=== PATIENT | male | born 1965 | race Caucasian/White ===

== ENCOUNTER 2020-09-19 15:10 | Outpatient (REF) | payer MEDICARE, OTHER, SELFPAY ==
--- NOTE | ~2020-09-19 | XR_ITS ---
EXAMINATION: XR CHEST CLINICAL INFORMATION: Cough. Evaluate for pneumonia. COMPARISON: None TECHNIQUE: 2 views of the chest were obtained. FINDINGS: Hypoinflation of the lungs. Minimal probable atelectasis adjacent to the right hilum. No large, confluent airspace consolidation. No pleural effusion or pneumothorax. Unremarkable cardiomediastinal silhouette. XR/XR chest 2V IMPRESSION: Hypoinflation of the lungs with probable minimal right perihilar atelectasis.
== END 2020-09-19 15:11 | disposition home or self-care (01) ==
LOC: HO.XRAY 15:10
PROVIDERS: PCP Internal Medicine; Visit Provider Internal Medicine
DX: R05 Cough (principal)
CPT/HCPCS: 71046

== ENCOUNTER 2020-09-19 15:48 | Outpatient (REF) | payer MEDICARE, OTHER, SELFPAY ==
[2020-09-19 16:06] LABS: COVID-19 Test Negative (Negative)
== END 2020-09-19 15:49 | disposition home or self-care (01) ==
LOC: HO.LAB 15:48
PROVIDERS: PCP Internal Medicine; Visit Provider Internal Medicine
DX: Z20.822 Contact with and (suspected) exposure to COVID-19 (principal)
CPT/HCPCS: 36415; 71046; 87635; C9803

== ENCOUNTER 2021-10-05 10:20 | Outpatient (REF) | payer MEDICARE, OTHER, SELFPAY ==
--- NOTE | ~2021-10-05 | XR_ITS ---
EXAMINATION: XR LUMBOSACRAL SPINE CLINICAL INFORMATION: Paresthesias left thigh COMPARISON: None TECHNIQUE: Three views of the lumbosacral spine. FINDINGS: There may be a transitional vertebral body segment or 6 lumbar-type vertebral bodies. Bone alignment is normal. No fracture or dislocation is seen. There is degenerative disc disease of the lower thoracic spine. Disc spaces are otherwise normal. There is lower lumbar spine facet arthritis. XR/XR lumbar spine 2-3V IMPRESSION: Mild degenerative changes.
== END 2021-10-05 10:21 | disposition home or self-care (01) ==
LOC: HO.XRAY 10:20
PROVIDERS: PCP Internal Medicine; Visit Provider Internal Medicine
DX: R20.2 Paresthesia of skin (principal)
CPT/HCPCS: 72100

== ENCOUNTER 2025-02-23 15:57 | Outpatient (REF) | payer MEDICARE, OTHER, SELFPAY ==
--- OUTSIDE RECORDS SUMMARY | 2025-02-23 14:45 | XMS_ITS | Encounter Summary ---
Author Organization [employer] Address [address] [place] [address] Care Team Providers Care Director Of Clinical Trials Name Role Phone Unavailable Primary Care Provider Unavailabl e Encounter Details Date Type Department Care Team (Late st Contact Info) Description 02/23/2025 2:45 PM EDT Office Visit [facility] [address] [place], [place] [phone] Sharita Watson FNP [address] [place], [place] [phone] Well adult exam (Primary Dx) Social History Tobacco Use Types Packs/Day Years Used Date Smoking Tobacco: Former Cigarettes Passive Smoke Exposure: Past Smokeless Tobacco: Former Tobacco Cessation:Counseling Given: Not Answered Depression Answer Date Recorded Patient Health Questionnaire-9 Score 4 02/23/2025 Patient Health Questionnaire-9 Score 4 02/23/2025 Last PHQ-9: Questionnaire Data Not on file 0 02/23/2025 Housing Stability Answer Date Recorded What is your housing situation today? I have vicki gonzalez 02/23/[address] you li ve. Do you have problems with any of the following? None of the above 02/23/2025 Food Insecurity Answer Date Recorded Within the past 12 months, y ou worried that your food would run out before you got money to buy more: Sometimes True 2024 Within the past 12 months,th e food you bought just didn't last and you didn't have enough money to get more: Sometimes True 02/23/2025 Transportation Answer Date Recorded In the past 12 months, has l ack of transportation kept you from medical appts, meetings, work or from getting things needed for daily living? No 02/23/2025 Utilities Answer Date Recorded In the past 12 months, has t he electric, gas, oil or water company threatened to shut off services in your home? No 02/23/2025 Depression Answer Date Recorded Patient Health Questionnaire-2 Score 3 02/23/2025 Internet Access Answer Date Recorded Internet Access Q1 Yes 02/23/2025 Internet Access Q2 Not on file 02/23/2025 Sex and Gender Information Value Date Recorded Sex Assigned at Male 01/26/2025 10:54 AM EDT Legal Sex Male 5:37 PM EDT Gender Identity Male 02/22/2025 10:35 AM EDT Sexual Orientation Straight 02/22/2025 10 :35 AM EDT documented as of this encounter Last Filed Vital Signs Vital Sign Reading Time Taken Comments Blood Pressure 136/84 02/23/2025 3:52 PM EDT Pulse 66 02/23/2025 2:32 PM EDT Temperature 36.9 C (98.4 F) 02/23/2025 2:32 PM EDT Respiratory Rate 20 02/23/2025 2:32 PM EDT Oxygen Saturation 98% 02/23/2025 2:32 PM EDT Inhaled Oxygen Concentration - - Weight 122 kg (270 lb) 02/23/2025 2:32 PM EDT Height 170.4 cm (5' 7.08 ) 02/23/2025 2:32 PM ED T Body Mass Index 42.19 02/23/2025 2:32 PM EDT documented in this encounter Functional Status * Over the past 2 weeks, how often have you been bothered by any of the following problems? Question Answer Date of Assessment Author Patient Health Questionnaire -2 Score 3 02/23/2025 3:18 PM EDT Joanna Haley MA * Little interest or pleasure in doing things Answer Date of Assessment Author Nearly every day 02/23/2025 3:18 PM EDT Joanna Gagnon Ma, [place] * Feeling down, depressed, or hopeless Answer Date of Assessment Author Not at all 02/23/2025 3:18 PM EDT Joanna Lassiter MA * Trouble falling or staying asleep, or sleeping too much Answer Date of Assessment Author Not at all 02/23/2025 3:18 PM EDT Joanna Lassiter MA * Feeling tired or having little energy Answer Date of Assessment Author Several days 02/23/2025 3:18 PM EDT Joanna Lassiter MA * Poor appetite or overeating Answer Date of Assessment Author Not at all 02/23/2025 3:18 PM EDT Joanna Lassiter MA * Feeling bad about yourself - or that you are a failure or have let yourself or your family down Answer Date of Assessment Author Not at all 02/23/2025 3:18 PM EDT Joanna Lassiter MA * Trouble concentrating on things, such as reading the newspaper or watching television Answer Date of Assessment Author Not at all 02/23/2025 3:18 PM EDT Joanna Lassiter MA * Moving or speaking so slowly that other people could have noticed? Or the opposite - being so fidgety or restless that you have been moving around a lot more than usual. Answer Date of Assessment Author Not at all 02/23/2025 3:18 PM EDT Joanna Lassiter MA * Thoughts that you would be better off or hurting yourself in some way Answer Date of Assessment Author Not at all 02/23/2025 3:18 PM EDT Joanna Lassiter MA * Patient Health Questionnaire-9 Score Answer Date of Assessment Author 4 02/23/2025 3:18 PM EDT Joanna Lassiter MA * How difficult have these problems made it for you to do your work, take care of things at home, or get along with other people? Answer Date of Assessment Author Not difficult at all 02/23/2025 3:18 PM EDT Joanna Morataya MA * Over the last 2 weeks, how often have you been bothered by any of the following problems? Question Answer Date of Assessment Author Feeling nervous, anxious, or on edge 0 02/23/2025 3:18 PM EDT Joanna Haley MA Not being able to stop or control worrying 0 02/23/2025 3:18 PM ERICT Joanna Haley MA Worrying too much about different things 1 02/23/2025 3:18 PM EDT Joanna Haley MA Trouble relaxing 0 02/23/2025 3:18 PM EDT R eyes Joanna Woodall MA Being so restless that it is hard to sit still 1 02/23/2025 3:18 PM EDT Joanna Haley MA Becoming easily annoyed or irritable 0 02/23/2025 3:18 PM EDT Joanna Haley MA Feeling afraid as if somethi ng awful might happen 0 02/23/2025 3:18 PM EDT Joanna Haley MA SORAYA-7 Total Score 2 02/23/2025 3:18 PM EDT Joanna Haley MA documented as of this encounter Plan of Treatment Scheduled Orders Name Type Priority Associated Diagnoses Orde r Schedule Comprehensive Metabolic Panel Lab Routine Well adult exam Expected: 02/23/2025 (Approximate), Expires: 02/22/2026 TSH Lab Routine Well adult exam Expected: 02/23/2025 (Approximate), Expires: 02/22/2026 Hepatitis C Antibody with Reflex to HCV, RNA, Quantitative, Real-Time PCR Lab Routine Well adult exam Expected: 02/23/2025, Expires: 02/22/2026 CBC auto differential Lab Routine Well adult exam Expected: 02/23/2025 (Approximate), Expires: 02/22/2026 Lipid Panel, Standard Lab Routine Well adult exam Expected: 02/23/2025 (Approximate), Expires: 02/22/2026 Hemoglobin A1c Lab Routine Well adult exam Expected: 02/23/2025 (Approximate), Expires: 02/22/2026 documented as of this encounter Visit Diagnoses Diagnosis Well adult exam- Primary Routine general medical examination at a health care facility documented in this encounter Additional Health Concerns Assessment Noted Time PHQ-9 Depression Total Score: 4 02/24/20 25 3:18 PM EDT documented as of this encounter
--- OUTSIDE RECORDS SUMMARY | 2025-02-23 18:00 | XMS_ITS | Clinical Summary ---
Author Organization [employer] Address [address] [facility] [address] [place] [address] Care Team Providers Care Coil Connector Name Role Phone Unavailable Primary Care Provider Unavailabl e Allergies No known active allergies Medications losartan (Cozaar) 100 MG tablet Take 1 tablet by mouth Once per day. 5 Active atorvastatin (Lipitor) 20 MG tablet Take 20 mg by mouth Once per day. as directed 5 Active amLODIPine (Norvasc) 10 MG tablet Take 1 tablet by mouth Once per day. 5 Active dilTIAZem (Cardizem) 60 MG immediate release tablet Take 60 mg by mouth Once per day. Active carbamide peroxide (Debrox) 6.5 % otic solution Administer 5-10 drops into affected ear(s) 2 times daily for 4 days. 30 mL 5 02/28/20 25 Active Active Problems Problem Noted Date Diagnosed Date Colon cancer screening 02/22/2025 Encounters Date Type Department Care Team Description 02/23/2025 2:45 PM EDT Office Visit [facility] [address] [place], [place] [phone] Sharita Watson FNP Well adult exam (Primary Dx) 02/23/2025 Travel 02/22/2025 Telephone [facility] [address] [place] [address] Sharita Watson FNP Chart Prep 02/16/2025 Patient Outreach [facility] [address] [place], [place] [phone] Sharita Watson FNP Pre-visit Planning (SDOH unable to reach LVM ) from Last 3 Months Social History Tobacco Use Types Packs/Day Years [...] Orientation Straight 02/22/2025 10 :35 AM EDT Last Filed Vital Signs Vital Sign Reading [...] Mass Index 42.19 02/23/2025 2:32 PM EDT Plan of Treatment Health Maintenance Due Date Last Done Comments CT Colonography 1965 Colonoscopy 1965 Colorectal Cancer Screening 1965 FIT DNA/Cologuard 1965 FIT 1965 FOBT 1965 HIV Screening 1965 Lipid Panel 1965 Sigmoidoscopy 1965 Hepatitis C Screening 1983 DTaP/Tdap/Td Vaccines (1 - Tdap) 1984 Hepatitis B Vaccines (1 of 3 - 19+ 3-dose series) 1984 Pneumococcal Vaccine: 50+ Years (1 of 1 - PCV) 2015 Zoster Vaccines (1 of 2) 2015 COVID-19 Vaccine (1 - 2023-2 5 season) 2025 Influenza Vaccine (#1) 2025 Alcohol/Substance Use Screening 02/23/2026 02/23/2025 Depression Screening 02/23/2026 02/23/2025, 02/23/2025 Disability Screening 02/23/2026 02/23/2025 SDOH Screening 02/23/2026 02/23/2025 Tobacco Screening 02/23/2026 02/23/2025 RSV Patients and Patients Aged 60 years or older (1 - 1-dose 75+ series) 2040 HIB Vaccines Aged Out No longer eligi ble based on patient's age to complete this topic HPV Vaccines Aged Out No longer eligi ble based on patient's age to complete this topic Hepatitis A Vaccines Aged Out No long er eligible based on patient's age to complete this topic IPV Vaccines Aged Out No longer eligi ble based on patient's age to complete this topic Meningococcal B Vaccine Aged Out No l onger eligible based on patient's age to complete this topic Meningococcal Vaccine Aged Out No kellie demetrio eligible based on patient's age to complete this topic RSV under 20 months Aged Out No longe r eligible based on patient's age to complete this topic Rotavirus Vaccines Aged Out No longer eligible based on patient's age to complete this topic Insurance [facility] MEDICARE
--- OUTSIDE RECORDS SUMMARY | 2025-02-23 18:00 | XMS_ITS | Patient Health Record ---
Author Organization [facility] Address [address] [place] [address] Care Team Providers Care Sales Officer Name Role Phone Consuelo (RETIRED) Khris AGUDELO Primary Care Provider Unavailable Nomi Reid Jr Unavailable Reason For Referral No Information Medications Medication SIG (Take, Route, Frequency, Duration) Notes Start Date End Date Status Colyte with Flavor Packs 240 GM As directed Orally Over the specified time. for 1 day(s) 09/16/2018 Active Levothyroxine Sodium 112 MCG 1 tablet on an empty stomach in the morning Orally Once a day Active Simvastatin 40 MG 1 tablet in the even ing Orally Once a day Active Immunizations Vaccine Route Administration Date Status Comme nts Influenza Unknown 09/16/2018 Refused Social History Tobacco Use: Social History Observation Description Date Details (start date - stop date) Former Smoker NA - NA Tobacco Use/Smoking Question Answer Notes Patient is a former smoker How long has it been since you last smoked? > 10 years Alcohol Screen Question Answer Notes Did you have a drink contain ing alcohol in the past year? Yes How often did you have a dri nk containing alcohol in the past year? Monthly or less (1 point) How many drinks did you have on a typical day when you were drinking in the past year? 1 or 2 drinks (0 point) How often did you have 6 or more drinks on one occasion in the past year? Never (0 point) Points 1 Interpretation Negative Problems Problem Type SNOMED Code ICD Code Onset Dates Problem Status W/U Status Risk Notes Problem [id number] Colon cancer screening (Z12.11) Active confirmed Plan Of Treatment Future Test Test Name Order Date COLONOSCOPY 09/16/2018 Insurance Providers Payer Name Payer Address Payer Phone Subscriber Number Group Number Insured Name Patient Relationship to Insured Coverage Start Date Coverage End Date MEDICARE OF [employer] [address] [place] [address] [id number] [employer] Self - patient is the insured Medical (General) History Medical History History ICD Code hypercholesterolemia thyroid Surgical History Surgery Date(Month/Year) carpal tunnel release bilateral
--- OUTSIDE RECORDS SUMMARY | 2025-02-23 18:00 | XMS_ITS | Encounter Summary ---
Author Organization [employer] Address [address] [place] [address] Care Team Providers Care Manager Storage Name Role Phone Unavailable Primary Care Provider Unavailabl e Reason for Visit * Reason Onset Date Comments Chart Prep 02/22/2025 Encounter Details Date Type Department Care Team (Late st Contact Info) Description 02/22/2025 Telephone [facility] [address] [place] [address] Sharita Watson FNP [address] [place] [address] Chart Prep Social History Tobacco Use Types Packs/Day Years Used Date Smoking Tobacco: Never Assessed Depression Answer Date Recorded Patient Health Questionnaire-9 [...] AM EDT documented as of this encounter Miscellaneous Notes * Telephone Encounter - Anastacio [place] MA - 02/22/2025 9:29 AM EDT Chart Prep Labs: not applicable Images: not applicable Referrals: not applicable Vaccines due: Covid, Flu, Hep B, HPV, and DTAP Screenings: colonoscopyAlcohol/Substance Use Screening ( Overdue care gaps: SBIRT, SDOH, PHQ-9, SORAYA-7, Oral health screening, Disability screen, and Tobacco documented in this encounter Plan of Treatment Not on file documented as of this encounter Visit Diagnoses Not on filedocumented in this encounter
--- OUTSIDE RECORDS SUMMARY | 2025-02-23 18:00 | XMS_ITS | Encounter Summary ---
Author Organization [employer] Address [address] [place] [address] Care Team Providers Care Hand Developer Name Role Phone Unavailable Primary Care Provider Unavailabl e Encounter Details Date Type Department Care Team (Latest Contact Info) Description 02/23/2025 Travel Social History Tobacco Use Types Packs/Day Years Used Date Smoking Tobacco: Former Cigarettes Passive Smoke Exposure: Past Smokeless Tobacco: Former Depression Answer Date Recorded Patient Health Questionnaire-9 [...] AM EDT documented as of this encounter Functional Status * Over the [...] or control worrying 0 02/23/2025 3:18 PM EDT Joanna aHley MA Worrying too much about different things 1 02/23/2025 3:18 PM EDT Joanna Haley MA Trouble relaxing 0 02/23/2025 3:18 PM EDT Joanna Hughes MA Being so restless that it is [...] as of this encounter Plan of Treatment Not on file documented as of this encounter Visit Diagnoses Not on filedocumented in this encounter Additional Health Concerns Assessment Noted Time PHQ-9 Depression Total Score: 4 02/24/20 3:18 PM EDT documented as of this encounter
[2025-02-23 18:26] LABS: Hematocrit 45.3 % (42.0-52.0); Hemoglobin 15.2 g/dl (14.0-18.0); Imm Gran Abs Auto 0.01 X10*3/uL (0.00-0.03); Imm Gran Pct Auto 0.1 % (0.0-0.4); Lymphocytes Absolute Auto 2.1 X10*3/uL (1.2-4.9); MANUAL DIFF FLAG NO; Mean Corpuscular HGB Conc 33.6 g/dl (31.0-36.0); Mean Corpuscular Hemoglobin 30.1 pg (27.0-33.0); Mean Corpuscular Volume 89.7 fL (80.0-98.0); NRBC Abs Auto 0.000 X10*3/uL (0.0-0.012); NRBC Pct Auto 0.0 /100WBC (0.0-0.2); Platelet Count 294 X10*3/uL (160-400); Red Blood Count 5.05 X10*6/uL (4.60-5.80); White Blood Count 9.2 X10*3/uL (4.8-10.8)
[2025-02-23 19:10] LABS: Alanine Aminotransferase 13 U/L (0-40); Albumin Level 4.4 g/dL (3.5-5.0); Alkaline Phosphatase 86 U/L (39-117); Anion Gap 12 (12-20); Aspartate Amino Transferase 23 U/L (5-37); Blood Urea Nitrogen 20 mg/dL (9-16); Calcium 9.5 mg/dL (8.4-10.2); Carbon Dioxide 28 mmol/L (22-29); Chloride 105 mmol/L (96-108); Cholesterol 155 mg/dL (<200); Estimated Glomerular Filt Rate > 60; HDL Cholesterol 41 mg/dL (>40); Potassium 4.7 mmol/L (3.3-5.1); Sodium 140 mmol/L (135-145); Total Protein 7.4 g/dL (6.5-8.0); Triglycerides 76 mg/dL (<150)
[2025-02-23 19:15] LABS: Thyroid Stimulating Hormone 6.07 uIU/mL (0.32-4.0)
[2025-02-24 04:21] LABS: ~HepC Num1 0.10 S/CO (0.00-0.79); ~Hepatitis C Antibody Nonreactive (Nonreactive)
[2025-02-24 05:24] LABS: Hemoglobin A1C 141.5404 umol/L; Total Hemoglobin (HGBA1C) 3838.8320 umol/L
== END 2025-02-23 15:58 | disposition home or self-care (01) ==
LOC: HO.HHCL 15:57
PROVIDERS: PCP Nurse Practitioner Family; Visit Provider Nurse Practitioner Family
DX: Z00.00 Encounter for general adult medical examination without abnormal findings (principal); Z13.1 Encounter for screening for diabetes mellitus; Z13.6 Encounter for screening for cardiovascular disorders; Z13.29 Encounter for screening for other suspected endocrine disorder
CPT/HCPCS: 36415; 80053; 80061; 83036; 84443; 85025; 86803

== ENCOUNTER 2025-04-20 11:18 | Outpatient (REF) | payer MEDICARE, OTHER, SELFPAY ==
--- OUTSIDE RECORDS SUMMARY | 2025-04-20 10:30 | XMS_ITS | Encounter Summary ---
Author Organization [employer] Address [address] [place] [address] Care Team Providers Care Shiatsu Therapist Name Role Phone Sharita Watson MACHINE PECAN PICKER Primary Care Provider [phone] Reason for Visit * Reason Comments Blood Pressure Check Cerumen Impaction Encounter Details Date Type Department Care Team (Latest Contact Info) Description 04/20/2025 10:30 AM EST Clinical Support [facility] [address] [place] [address] Kelly Tamez RN Hypertension, unspecified type; Bilateral impacted cerumen Social History Tobacco Use Types Packs/Day Years Used Date Smoking Tobacco: Former Cigarettes Passive Smoke Exposure: Past Smokeless Tobacco: Former Alcohol Answer Date Recorded How often do you have a drink containing alcohol ? 0 04/14/2025 Average Number of Drinks Not on file 025 Frequency of Binge Drinking Not on file 04/02 Depression Answer Date Recorded Patient Health Questionnaire-9 Score 4 02/23/2025 Patient Health Questionnaire-9 Score 4 02/23/2025 Last PHQ-9: Questionnaire Data Not on file 0 02/23/2025 Housing Stability Answer Date Recorded What is your housing situation today? I have vicki lisa 02/23/[address] you li [...] Sign Reading Time Taken Comments Blood Pressure 124/80 04/20/2025 10:38 AM EST Pulse 57 04/20/2025 10:37 AM EST Temperature 37.3 C (99.1 F) 04/20/2025 10:37 AM EST Respiratory Rate 18 04/20/2025 10:37 AM EST Oxygen Saturation 98% 04/20/2025 10:37 AM EST Inhaled Oxygen Concentration - - Weight 123 kg (272 lb) 04/20/2025 10:37 AM EST Height 170.2 cm (5' 7 ) 04/20/2025 10:37 AM EST Body Mass Index 42.6 04/20/2025 10:37 AM EST documented in this encounter Progress Notes * Kelly Tamez RN - 04/20/2025 10:30 AM ESTAssociated Order(s): Ear Cerumen Removal Post-Procedure Diagnose(s): Bilateral impacted cerumen SUBJECTIVE: Nash Krause is a 59 y.o. year old male who presents for Blood Pressure Check and Cerumen Impaction. Art last OV recomendtaions made on that day per PCP were Continue with losartan 100 mg daily and diltiazem 60 mg daily. Instructed to take medications at same period daily. Provided blood pressure cuff for home monitoring. Advised to record blood pressure readings one to two hours after morning dose and between 5:00 and 6:00 PM in the evening. Scheduled nurse follow-up on April 20, 2025, to review blood pressure readings and assess medication efficacy. And Bilateral cerumen impaction confirmed. Prescribed ear drops (5-10 drops in each ear, twice daily for 4 days starting April 16, 2025). Scheduled nurse visit for ear lavage on April 20, 2025, at 10:30 AM with nurse Liudmila. Advised to use Q-tip only to clean material that comes out of ear canal, not to insert into ear. . Today pt denies any blurred vision, shortness of breath, chest pain, dizziness, or headaches. Pt denies smoking and states they drink alcohol occasionally. Pt states their diet consist of oatmeal, toast, chicken, pork chops, rice and vegetables. Pt denies eating anything salty in the last 24 hours. Pt report they do not exercise. . Pt reports they take their medication at night but has been taking it everyday as prescribed and checking their BP daily. Pt denies using the drops but still would like to proceed with ear lovage. Current Medications[1] Patient Active Problem List Diagnosis Date Noted Toothache 04/16/2025 Bilateral impacted cerumen 04/16/2025 Hyperlipidemia 04/16/2025 Periodontal disease 04/14/2025 Dental abscess 04/14/2025 Hypertension 02/25/2025 Morbid obesity (CMS/HCC) (HCC) 02/25/2025 Hypothyroidism 02/25/2025 Colon cancer screening 02/22/2025 Patient has no known allergies. BP Readings from Last 4 Encounters: 04/20/25 124/80 04/13/25 120/78 02/23/25 136/84 Pulse Readings from Last 4 Encounters: 04/20/25 57 04/13/25 66 02/23/25 66 OBJECTIVE: BP log scanned under media. Vitals: 04/20/25 1037 04/20/25 1038 BP: 122/80 124/80 BP Location: Left arm Right arm Patient Position: Sitting Sitting BP Cuff Size: Adult Adult Pulse: 57 Resp: 18 Temp: 99.1 ??F (37.3 ??C) TempSrc: Oral SpO2: 98% Weight: 272 lb (123 kg) Height: 5' 7 (1.702 m) ASSESSMENT: Ear irrigation completed and pt tolerated well. Pt advised to continue with the use of debrox dropsat home and to come back in 4 days for nurse visit to attempt another removal in left ear. Pt declined at this time and states they will monitor at home and call us back if they change their mind. Achieve goal blood pressure of <140/90 or <130/80 PLAN: Pt advised to continue taking medications as directed and reinforcement of lifestyle modifications including low sodium diet and exercise were reviewed. Pt advised to continue to check their BP dailyand a message will be sent to their provider for review. Pt verbalized understanding and is agreeable to plan discussed at today's visit. Patient ID: Nash Krause is a 59 y.o. male. Ear Cerumen Removal Date/Time: 04/20/2025 10:39 AM Performed by: Kelly Tamez RN Authorized by: LOUIE Kang Consent: Consent obtained: Verbal Consent given by: Parent and patient Risks, benefits, and alternatives were discussed: yes Risks discussed: Incomplete removal Alternatives discussed: Alternative treatment Procedure details: Location: L ear and R ear Procedure type: irrigation Procedure outcomes: cerumen removed Post-procedure details: Inspection: Some cerumen remaining Hearing quality: Improved Procedure completion: Tolerated Future Appointments Date Time Provider Department Center 07/21/2025 2:00 PM Allyson Hopper OD [facility] Kelly Tamez RN [1] Current Outpatient Medications Medication Sig Dispense Refill acetaminophen (Tylenol) 500 MG tablet Take 1 tablet (500 mg) by mouth every 6 (six) hours if neededfor mild pain. 30 tablet 0 amoxicillin (Amoxil) 500 MG capsule Take 1 capsule (500 mg) by mouth every 8 (eight) hours for 7 days. 21 capsule 0 atorvastatin (Lipitor) 20 MG tablet Take 1 tablet (20 mg) by mouth Once per day. as directed 90 tablet 1 Blood Pressure kit 1 Units 2 times daily. 1 kit 0 dilTIAZem (Cardizem) 60 MG immediate release tablet Take 60 mg by mouth Once per day. ibuprofen 400 MG tablet Take 1 tablet (400 mg) by mouth 3 times daily. 15 tablet 0 levothyroxine (Synthroid) 112 MCG tablet Take 1 tablet (112 mcg) by mouth before breakfast. 30 tablet 11 losartan (Cozaar) 100 MG tablet Take 1 tablet (100 mg) by mouth Once per day. 30 tablet 3 No current facility-administered medications for this visit. documented in this encounter Plan of Treatment Upcoming Encounters Date Type Department Care Team (Late st Contact Info) Description 07/21/2025 2:00 PM EST Office Visit [facility] [address] [place] [address] TarAllyson bai, OD [address] [place] [address] documented as of this encounter Procedures Procedure Name Priority Date/Time Associated Diagnosis Comments ME REMOVAL IMPACTED CERUMEN IRRIGATION/LVG UNILAT Routine 04/20/2025 10:39 AM EST Bilateral impacted cerumen documented in this encounter Results * ME REMOVAL IMPACTED CERUMEN IRRIGATION/LVG UNILAT (04/20/2025 10:39 AM EST) Narrative Kelly Tamez RN - 04/20/2025 10:39 AM EST Kelly Tamez RN 04/20/2025 2:50 PM Ear Cerumen Removal Date/Time: 04/20/2025 10:39 AM Performed by: Kelly Tamez RN Authorized by: LOUIE Kagn Consent: Consent obtained: Verbal Consent given by: Parent and patient Risks, benefits, and alternatives were discussed: yes Risks discussed: Incomplete removal Alternatives discussed: Alternative treatment Procedure details: Location: L ear and R ear Procedure type: irrigation Procedure outcomes: cerumen removed Post-procedure details: Inspection: Some cerumen remaining Hearing quality: Improved Procedure completion: Tolerated Sharita PALMA IN CLINIC/BEDSIDE ORDERABLES F inal Result documented in this encounter Visit Diagnoses Diagnosis Hypertension, unspecified type Bilateral impacted cerumen Impacted cerumen documented in this encounter Additional Health Concerns Assessment Noted Time PHQ-9 Depression Total Score: 4 02/24/20 3:18 PM EDT documented as of this encounter Care Teams Shiatsu Therapist Relationship Specialty Start Date End Date Sharita Watson FNP [address] [place] [address] PCP - General Family Medicine 03/31/25 documented as of this encounter
[2025-04-20 15:17] LABS: Free T4 (Free Thyroxine) 1.26 ng/dL (0.71-1.85); Thyroid Stimulating Hormone 0.88 uIU/mL (0.32-4.0)
--- OUTSIDE RECORDS SUMMARY | 2025-04-20 22:17 | XMS_ITS | Patient Health Record ---
Author Organization [facility] Address [address] [place] [address] Care Team Providers Care Correctional Supervisor Lieutenant Name Role Phone Consuelo (RETIRED) Khris AGUDELO Primary Care Provider Unavailable Nomi Reid Jr Unavailable Reason For Referral No Information Medications Medication SIG (Take, Route, Frequency, Duration) Notes Start Date End Date Status Colyte with Flavor Packs 240 GM Solution Reconstituted As directed Orally Over the specified time.; Duration: 1 day(s) 09/16/2018 Active Levothyroxine Sodium 112 MCG Tablet 1 tablet on an empty stomach in the morning Orally Once a day Active Simvastatin 40 MG Tablet 1 tablet in the evening Orally Once a day Active Immunizations Vaccine Route Administration Date Status Comme nts Influenza Unknown 09/16/2018 Refused Social History Tobacco Use: Social History Observation Description Date Details (start date - stop date) Former Smoker NA - NA Social History Drugs/Alcohol: Social Info Question Answer Notes Alcohol Screen Did you have a drink containing alcohol in the past year? Yes How often did you have a drink containing alcohol in the past year? Monthly or less (1 point) How many drinks did you have on a typical day when you were drinking in the past year? 1 or 2 drinks (0 point) How often did you have 6 or more drinks on one occasion in the past year? Never (0 point) Points 1 Interpretation Negative Tobacco Use: Social Info Question Answer Notes Tobacco Use/Smoking Patient is a former smoker How long has it been since you last smoked? > 10 years Additional Details Category Social Info Options Details Miscellaneous: Marital status: Occupation: unemployed Problems Problem Type SNOMED Code ICD Code Onset Dates Problem Status W/U Status Risk Notes Problem Colon cancer screening (260772772) Colon cancer screening (Z12.11) Active confirmed Plan Of Treatment Future Test Test Name Order Date COLONOSCOPY 09/16/2018 Insurance Providers Payer Name Payer Address Payer Phone Subscriber Number Group Number Insured Name Patient Relationship to Insured Coverage Start Date Coverage End Date MEDICARE OF [employer] [address] [place] [address] [id number] [place] Self - patient is the insured Medical (General) History Medical History History ICD Code hypercholesterolemia thyroid Surgical History Surgery Date(Month/Year) carpal tunnel release bilateral
--- OUTSIDE RECORDS SUMMARY | 2025-04-20 22:18 | XMS_ITS | Clinical Summary ---
Author Organization [employer] Address [address] [place] [address] Care Team Providers Care Clerical Associate Name Role Phone Sharita Watson [employer] [employer]ER Primary Care Provider [phone] Allergies No known active allergies Medications dilTIAZem (Cardizem) 60 MG immediate release tablet Take 60 mg by mouth Once per day. Active Blood Pressure kitIndications :Hypertension, unspecified type 1 Units 2 times daily. 1 kit 02/26/20 25 Active levothyroxine (Synthroid) 112 MCG tablet Take 1 tablet (112 mcg) by mouth before breakfast. 30 tablet 11 03/30/20 25 026 Active atorvastatin (Lipitor) 20 MG tablet Take 1 tablet (20 mg) by mouth Once per day. as directed 90 tablet 1 04/13/20 25 Active losartan (Cozaar) 100 MG tablet Take 1 tablet (100 mg) by mouth Once per day. 30 tablet 3 04/13/20 25 Active acetaminophen (Tylenol) 500 MG tablet Take 1 tablet (500 mg) by mouth every 6 (six) hours if needed for mild pain. 30 tablet 04/14/20 25 Active ibuprofen 400 MG tablet Take 1 tablet (400 mg) by mouth 3 times daily. 15 tablet 04/14/20 25 Active amoxicillin (Amoxil) 500 MG capsule Take 1 capsule (500 mg) by mouth every 8 (eight) hours for 7 days. 21 capsule 04/14/20 25 025 Active atorvastatin (Lipitor) 20 MG tablet Take 20 mg by mouth Once per day. as directed 12/21/19 25 025 Discontinued(Re order (will not trigger notification to Pharmacy)) amLODIPine (Norvasc) 10 MG tablet Take 1 tablet by mouth Once per day. 12/21/19 025 Discontinued(Th erapy completed) levothyroxine (Synthroid) 100 MCG tablet Take 1 tablet (100 mcg) by mouth before breakfast. 30 tablet 1 02/25/20 25 025 Discontinued losartan (Cozaar) 100 MG tablet Take 100 mg by mouth Once per day. 025 Discontinued(Re order (will not trigger notification to Pharmacy)) carbamide peroxide (Debrox) 6.5 % otic solutionIndica tions:Bilatera l impacted cerumen Administer 5-10 drops into affected ear(s) 2 times daily for 4 days. 30 mL 04/13/20 025 Active Problems Problem Noted Date Diagnosed Date Toothache 04/16/2025 Bilateral impacted cerumen 04/16/2025 Hyperlipidemia 04/16/2025 Periodontal disease 04/14/2025 Dental abscess 04/14/2025 Hypertension 02/25/2025 Morbid obesity (CMS/HCC) 02/25/2025 Hypothyroidism 02/25/2025 Colon cancer screening 02/22/2025 Encounters Date Type Department Care Team Description 04/20/2025 10:30 AM EST Clinical Support [address] [phone] Kelly Tamez, LISSY Hypertension, unspecified type; Bilateral impacted cerumen 04/20/2025 Travel 04/14/2025 1:00 PM EST Office Visit [facility] [address] [place] [phone] Ismael Pickens DDS Periodontal disease (Primary Dx); Dental abscess 04/13/2025 11:00 AM EST Office Visit [facility] [address] [place] [address] Sharita Watson FNP Hypertension, unspecified type (Primary Dx); Hypothyroidism, unspecified type; Toothache; Bilateral impacted cerumen; Hyperlipidemia, unspecified hyperlipidemia type 04/13/2025 Travel 04/12/[address] [address] Sharita Watson FNP Chart Prep 03/31/[address] [address] Venus Kathleen [place] 03/31/2025 Telephone [facility] [address] [place] [phone] Venus Kathleen [place] Appointment Request 03/19/2025 Refill [facility] [address] [place] [address] Sharita Watson FNP 03/18/2025 Travel 03/08/[address] [address] Kelly Tamez RN 02/28/2025 Orders Only [address] [address] Elliot Rey MD 02/23/2025 2:45 PM EDT Office Visit [address] [address] Sharita Watson FNP Well adult exam (Primary Dx); Hypothyroidism, unspecified type; Dietary counseling; Exercise counseling; Hypertension, unspecified type; Morbid obesity ([facility]) 02/23/2025 Travel 02/22/2025 Telephone [facility] [address] [place], [place] [phone] Sharita Watson FNP Chart Prep 02/16/2025 Patient Outreach [facility] [address] [place], [place] [phone] Sharita Watson FNP Pre-visit Planning ([facility] unable to reach [facility] ) from Last 3 Months Social History Tobacco Use Types Packs/Day Years Used Date Smoking Tobacco: Former Cigarettes Passive Smoke Exposure: Past Smokeless Tobacco: Former Tobacco Cessation:Counseling Given: Not Answered Alcohol Answer Date Recorded How often do [...] Mass Index 42.6 04/20/2025 10:37 AM EST Plan of Treatment Upcoming Encounters Date Type Department Care Team (Late st Contact Info) Description 07/21/2025 2:00 PM EST Office Visit [facility] [address] [place] [address], [place] [address] Allyson Hopper, OD [address] [place] [address] Health Maintenance Due Date Last Done Comments Anal Pap 1965 CT Colonography 1965 Colonoscopy 1965 Colorectal Cancer Screening 1965 Dental Oral Exam 1965 Dental Prophylaxis 1965 Dental X-Ray: Bitewings 1965 FIT DNA/Cologuard 1965 FIT 1965 FOBT 1965 HIV Screening 1965 Sigmoidoscopy 1965 DTaP/Tdap/Td Vaccines (1 - Tdap) 1984 Hepatitis A Vaccines (1 of 2 - Risk 2-dose series) 1984 Hepatitis B Vaccines (1 of 3 - 19+ 3-dose series) 1984 RSV Patients and Patients Aged 60 years or older (1 - Risk 50-74 years 1-dose series) 2015 Influenza Vaccine (#1) 2025 Postp oned from 01/31/2025 (Patient Refused) Alcohol/Substance Use Screening 02/23/2026 02/23/2025 Depression Screening 02/23/2026 02/23/2025, 02/23/2025 Disability Screening 02/23/2026 02/23/2025 SDOH Screening 02/23/2026 02/23/2025 Tobacco Screening 04/14/2026 04/14/2025 COVID-19 Vaccine (1 - 2024-2 6 season) 2026 Postponed from 01/31 (Patient Refused) Pneumococcal Vaccine: 50+ Years (1 of 1 - PCV) 04/16/2026 Postponed from 07/04 (Patient Refused) Zoster Vaccines (1 of 2) 04/16/2026 Pos tponed from 2015 (Patient Refused) Dental X-Ray: Full Mouth 04/15/2028 04/14/2025 Lipid Panel 02/23/2030 02/23/2025 Hepatitis C Screening Completed 02/23/2025 HIB Vaccines Aged Out No longer eligi [...] on patient's age to complete this topic Procedures Procedure Name Priority Date/Time Associated Diagnosis Comments T4, FREE Routine 04/20/2025 11:34 AM EST Hypothyroidism, unspecified type TSH Routine 04/20/2025 11:34 AM EST Hypothyroidism, unspecified type MT REMOVAL IMPACTED CERUMEN IRRIGATION/LVG UNILAT Routine 04/20/2025 10:39 AM EST Bilateral impacted cerumen 18 EXTRACTION, ERUPTED TOOTH OR EXPOSED ROOT (ELEVATION/FORCEPS REMOVAL) Routine 04/14/2025 1:00 PM EST LIMITED ORAL EVALUATION - PROBLEM FOCUSED Routine 04/14/2025 1:00 PM EST CASE PRESENTATION, DETAILED AND EXTENSIVE TREATMENT PLANNING Routine 04/14/2025 1:00 PM EST PANORAMIC RADIOGRAPHIC IMAGE Routine 04/14/2025 1:00 PM EST HEMOGLOBIN A1C Routine 02/23/2025 4:01 PM EDT Well adult exam LIPID PANEL, STANDARD Routine 02/23/2025 4:01 PM EDT Well adult exam CBC WITH AUTO DIFFERENTIAL Routine 02/23/2025 4:01 PM EDT Well adult exam HEPATITIS C AB W/REFL TO HCV RNA, QN, PCR Routine 02/23/2025 4:01 PM EDT Well adult exam TSH Routine 02/23/2025 4:01 PM EDT Well adult exam COMPREHENSIVE METABOLIC PANEL Routine 02/23/2025 4:01 PM EDT Well adult exam from Last 3 Months Results * TSH (04/20/2025 11:34 AM EST) Only the most recent of2 resultswithin the time period is included. Thyroid Stimulating Hormone 0.88 0.32 - 4.0 uIU/mL [facility] Comment:TSH 3rd Generation ( [facility]) Blood Venous blood specimen / Unknown 04/20/2025 11:34 AM EST 04/20/2025 1:27 PM EST Sharita Watson [facility] BLOOD ORDERABLES Final Res ult Performing Organization Address [facility]/ZIP Co de Phone Number [facility] [address] [place] [phone] * T4, Free (04/20/2025 11:34 AM EST) Free T4 (Free Thyroxine) 1.26 0.71 - 1.85 ng/dL [facility] Blood Venous blood specimen / Unknown 04/20/2025 11:34 AM EST 04/20/2025 1:27 PM EST Sharita Watson [facility] BLOOD ORDERABLES Final Res ult Performing Organization Address City/[facility]/ZIP Co de Phone Number [facility] [address] [place] [phone] * MT REMOVAL IMPACTED CERUMEN IRRIGATION/LVG UNILAT (04/20/2025 10:39 [...] remaining Hearing quality: Improved Procedure completion: Tolerated us Sharita [facility]/BEDSIDE ORDERABLES F inal Result * CBC auto differential (02/23/2025 4:01 PM EDT) White Blood Count 9.2 4.8 - 10.8 X10*3/uL [facility] Red Blood Count 5.05 4.60 - 5.80 X10*6/uL [facility] Hemoglobin 15.2 14.0 - 18.0 g/dl [facility] Hematocrit 45.3 42.0 - 52.0 % [facility] Mean Corpuscular Volume 89.7 80.0 - 98.0 fL [facility] Mean Corpuscular Hemoglobin 30.1 27.0 - 33.0 pg [facility] Mean Corpuscular HGB Conc 33.6 31.0 - 36.0 g/dl [facility] Red Cell Distribution Width 13.9 11.0 - 16.0 % [facility] Platelet Count 294 160 - 400 X10*3/uL [facility] Mean Platelet Volume 9.6 9.4 - 12.4 fL [facility] Neutrophils Percent Auto 68.5 45 - 73 % [facility] Imm Gran Pct Auto 0.1 0.0 - 0.4 % [facility] Lymphocytes Percent Auto 22.7 20 - 40 % [facility] Monocytes Percent Auto 6.4 2 - 11 % [facility] Eosinophils Percent Auto 1.9 0 - 4 % [facility] Basophils Percent Auto 0.4 0 - 2 % [facility] NRBC Pct Auto 0.0 0.0 - 0.2 /100WBC [facility] Neutrophils Absolute Auto 6.3 2.0 - 8.3 x10*3/uL [facility] Imm Gran Abs Auto 0.01 0.00 - 0.03 X10*3/uL [facility] Lymphocytes Absolute Auto 2.1 1.2 - 4.9 X10*3/uL [facility] Monocytes Absolute Auto 0.6 0.1 - 1.2 X10*3/uL [facility] Eosinophils Absolute Auto 0.2 0.0 - 0.4 X10*3/uL [facility] Basophils Absolute Auto 0.0 0.0 - 0.2 X10*3/uL [facility] NRBC Abs Auto 0.000 0.0 - 0.012 X10*3/uL [facility] Blood Venous blood specimen / Unknown 02/23/2025 4:01 PM EDT 02/23/2025 6:20 PM EDT [facility] BLOOD ORDERABLES Final Res ult Performing Organization Address [facility] Co de Phone Number [facility] [address] [place] [phone] * Hepatitis C Antibody with Reflex to HCV, RNA, Quantitative, Real-Time PCR (02/23/2025 4:01 PM EDT) Hepatitis C Antibody Nonreactive Nonreactive [facility] Comment:Antibodies to HCV no t detected; does not exclude early acuteHCV infection. Blood Venous blood specimen / Unknown 02/23/2025 4:01 PM EDT 02/23/2025 6:20 PM EDT [facility] LAB BLOOD ORDERABLES Final Res ult Performing Organization Address [facility] Co de Phone Number [facility] [address] [place] [address] [phone] * Hemoglobin A1c (02/23/2025 4:01 PM EDT) Hemoglobin A1c 5.5 <6.0 % [facility] Comment:Hemoglobin A1C Refer ence Range Adults: 4.8 - 6.0 % Non diabetic: < 6.0 % Goal: < 7.0 %Additional Action Suggested: > 8.0 %Note: Hemoglobin A1c results are invalid for patients with abnormal amounts of HbF. Blood transfusions may impact the HbA1c concentration in the patient sample. Estimated Average Glucose 111 mg/dL [facility] Comment:eAG = Estimated ave rage glucose which is %A1C expressed asaverage glucose, using the formula of the Z5M-LizafpjZtxnnic Glucose study (ADAG), Diabetes Care, Vol.31,#8,Dec. 2007 Blood Venous blood specimen / Unknown 02/23/2025 4:01 PM EDT 02/23/2025 6:20 PM EDT [facility] LAB BLOOD ORDERABLES Final Res ult [facility] [address] [place] [phone] * Lipid Panel, Standard (02/23/2025 4:01 PM EDT) Triglycerides 76 <150 mg/dL [facility] Comment:Desirable Triglyceri de: less than 150 mg/dLBorderline High Triglyceride 150-199 mg/dLHigh Triglyceride: 200-499 mg/dLVery High Triglyceride: greater than or equal to 5OO mg/dL Cholesterol 155 <200 mg/dL [facility] Comment:Desirable Cholestero l: less than 200 mg/dLBorderline High Cholesterol: 200-239 mg/dLHigh Cholesterol: greater than 239 mg/dL LDL Cholesterol Calculated 99 <100 mg/dL [facility] Comment:Desirable LDL: less than 100 mg/dLNear Optimal/Above Optimal LDL: 110- 129 mg/dLBorderline High LDL: 130-159 mg/dLHigh LDL: 160-189 mg/dLVery High LDL: greater than or equal to 190 mg/dL HDL Cholesterol 41 >40 mg/dL [facility] Comment:Desirable HDL: great er than 40 mg/dL Note: This HDL assay may give artificially low results in patients with liver disease. Blood Venous blood specimen / Unknown 02/23/2025 4:01 PM EDT 02/23/2025 6:20 PM EDT [facility] LAB BLOOD ORDERABLES Final Res ult Performing Organization Address [facility]/ZIP Co de Phone Number [facility] [address] [place] [phone] * (ABNORMAL) Comprehensive Metabolic Panel (02/23/2025 4:01 PM EDT) Sodium 140 135 - 145 mmol/L [facility] Potassium 4.7 3.3 - 5.1 mmol/L [facility] Chloride 105 96 - 108 mmol/L [facility] Carbon Dioxide 28 22 - 29 mmol/L [facility] Anion Gap 12 12 - 20 [facility] Urea Nitrogen (BUN) 20(H) 9 - 16 mg/dL [facility] Creatinine, Serum 1.15 0.5 - 1.4 mg/dL [facility] Estimated Glomerular Filt Rate >60 [facility] Comment:Chronic Kidney Disea se: Estimated GFR < 60 mL/min/1.72a1Kortli Kidney Disease: Estimated GFR < 15 mL/min/1.73m2 Glucose 88 60 - 115 mg/dL [facility] Calcium 9.5 8.4 - 10.2 mg/dL [facility] Bilirubin, Total 0.8 0.0 - 1.0 mg/dL [facility] Aspartate Amino Transferase 23 5 - 37 U/L [facility] Alanine Aminotransferase 13 0 - 40 U/L [facility] Total Protein 7.4 6.5 - 8.0 g/dL [facility] Albumin Level 4.4 3.5 - 5.0 g/dL [facility] Alkaline Phosphatase 86 39 - 117 U/L [facility] Blood Venous blood specimen / Unknown 02/23/2025 4:01 PM EDT 02/23/2025 6:20 PM EDT us Sharita Beybrown [facility] BLOOD ORDERABLES Final Res ult Performing Organization Address City/[facility]/ZIP Co de Phone Number [facility] [address] [place] [phone] from Last 3 Months Insurance [facility] [place] [id number] DENTAL-[facility] MEDICAID STAND ADULT Care Teams Clerical Associate Relationship Specialty Start Date End Date Sharita Watson FNP [address] [place] [phone] PCP - General Family Medicine 03/31/25
--- OUTSIDE RECORDS SUMMARY | 2025-04-20 22:18 | XMS_ITS | Encounter Summary ---
Author Organization [employer] Address [address] [facility] [address] [address] [place] [address] Care Team Providers Care Personal Loan Specialist Name Role Phone Sharita Watson Primary Care Provider [phone] Reason for Visit * Reason Comments Med Change Request Encounter Details Date Type Department Care Team ([facility] st Contact Info) Description 03/19/[address] [facility] [address] [place], [place] [phone] Sharita Watson FNP [address] [place] [address] Social History Tobacco Use Types Packs/Day Years [...] AM EDT documented as of this encounter Plan of Treatment Upcoming Encounters Date Type Department Care Team (Late st Contact Info) Description 07/21/2025 2:00 PM EST Office Visit [facility] [address] [place] [address] Allyson Hopper, OD [address] [place] [address] documented as of this encounter Visit Diagnoses Not on filedocumented in this encounter Additional Health Concerns Assessment Noted Time PHQ-9 Depression Total Score: 4 02/24/20 25 3:18 PM EDT documented as of this encounter Care Teams Personal Loan Specialist Relationship Specialty Start Date End Date Sharita Watson FNP [address] [place] [address] PCP - General Family Medicine 03/31/25 documented as of this encounter
--- OUTSIDE RECORDS SUMMARY | 2025-04-20 22:18 | XMS_ITS | Encounter Summary ---
Author Organization [employer] Address [address] [place] [address] Care Team Providers Care Therapy Director Name Role Phone Sharita Watson DIRECTOR OF PHYSIOTHERAPY SERVICES Primary Care Provider [phone] Encounter Details Date Type Department Care Team (Latest Contact Info) Description 04/20/2025 Travel Social History Tobacco Use Types Packs/Day [...] Description 07/21/2025 2:00 PM EST Office Visit [facility] [address] [place] [address] Allyson Hopper, OD [address] [place] [address] documented as of this encounter Visit Diagnoses Not on filedocumented in this encounter Additional Health Concerns Assessment Noted Time PHQ-9 Depression Total Score: 4 02/24/20 25 3:18 PM EDT documented as of this encounter Care Teams Therapy Director Relationship Specialty Start Date End Date Sharita Watson FNP [address] [place] [phone] PCP - General Family Medicine 03/31/25 documented as of this encounter
== END 2025-04-20 11:19 | disposition home or self-care (01) ==
LOC: HO.HHCL 11:18
PROVIDERS: PCP Nurse Practitioner Family; Visit Provider Nurse Practitioner Family
DX: E03.9 Hypothyroidism, unspecified (principal)
CPT/HCPCS: 36415; 84439; 84443; 84480